=== PATIENT | female | born 1960 | race Two or more races ===

== ENCOUNTER 2020-03-22 17:51 | Emergency (ER) | payer SELFPAY ==
[~2020-03-22] VITALS: Ht 162.6 cm; Wt 108.4 kg
--- NOTE | 2020-03-22 17:51 | NUR ---
PT BIB SELF C/O NECK AND BACK PAIN FOR 2 DAYS. PT IS AAOX4, NOT IN RESPIRATORY DISTRESS, V/S STABLE, KEPT RESTED AND COMFORTABLE. WILL CONTINUE TO MONITOR.
--- NOTE | 2020-03-22 18:04 | NUR ---
SEEN AND EXAMINED DISHMICHELLE.
[2020-03-22] MEDS ORDERED: KETOROLAC TROMETHAMINE INJ 60 MG/2 ML VIAL IM ONE (18:30)
[2020-03-22] MEDS ORDERED: DIAZEPAM 5 MG TABLET PO ONE (18:30)
[2020-03-22] MEDS ORDERED: DEXAMETHASONE SOD PHOSPHATE 10 MG/ML VIAL IM ONE (18:30)
[2020-03-22] MEDS ORDERED: DIAZEPAM 5 MG TABLET ONE (18:32)
[2020-03-22] MEDS ORDERED: DEXAMETHASONE SOD PHOSPHATE 10 MG/ML VIAL ONE (18:32)
[2020-03-22] MEDS ORDERED: KETOROLAC TROMETHAMINE 15 MG/ML VIAL ONE (18:32)
[2020-03-22] MEDS ORDERED: oxyCODONE/APAP (5/325 MG) 1 UDTAB TABLET ONE (19:04)
--- NOTE | 2020-03-22 19:20 | NUR ---
PT STATES "I FELT RELIEVED LITTLE BY LITTLE". PT AAOX4, VSS, RESPIRATIONS EVEN AND UNLABORED ON RA W/ NAD NOTED. PT CONNECTED TO THE RESIDENTIAL SALES REPRESENTATIVE AND POX
[2020-03-22] MEDS ORDERED: oxyCODONE/APAP (5/325 MG) 1 UDTAB TABLET PO ONE (19:30)
--- NOTE | 2020-03-22 21:05 | NUR ---
Patient discharged to home in stable condition. Written and verbal after care instructions given. Patient verbalizes understanding of instruction.pt. ambulatory with a steady gait
[2020-03-22 21:06] VITALS: BP 159/78
== END 2020-03-22 21:08 | disposition home or self-care (01) ==
LOC: ER 17:56
DX: M62.838 Other muscle spasm (principal); M54.2 Cervicalgia; I10 Essential (primary) hypertension; E11.9 Type 2 diabetes mellitus without complications
CPT/HCPCS: 71045; 72040; 93005; 96372 ×2; 99284; J1100; J1885